=== PATIENT | female | born 1985 | race African-American/Black ===

== ENCOUNTER 2021-11-06 13:13 | Emergency (ER) | payer BC ==
[~2021-11-06] VITALS: Ht 165.1 cm; Wt 60.0 kg
[2021-11-06 13:33] VITALS: BP 116/59
[2021-11-06] MEDS ORDERED: QUET100T PO (13:36)
[2021-11-06] MEDS ORDERED: CLON-457 PO (13:36)
[2021-11-06] MEDS ORDERED: GABA-529 PO (13:36)
[2021-11-06 14:24] LABS: CLARITY URINE CLEAR (CLEAR); COLOR URINE YELLOW (YELLOW); KETONES URINE NEGATIVE (NEGATIVE); LEUKOCYTE ESTERASE URINE NEGATIVE (NEGATIVE); NITRITE URINE NEGATIVE (NEGATIVE); OCCULT BLOOD URINE NEGATIVE (NEGATIVE); PROTEIN URINE NEGATIVE (NEGATIVE); SPECIFIC GRAVITY URINE 1.003 (1.005-1.030); UROBILINOGEN URINE 0.2 E.U./dL (0.2-1.0)
[2021-11-06] MEDS ORDERED: QUET100T MT (14:30)
[2021-11-06] MEDS ORDERED: GABA-529 MT (14:30)
[2021-11-06] MEDS ORDERED: CLON0.1T MT (14:30)
[2021-11-06] MEDS ORDERED: METR500T MT (23:00)
[2021-11-06] MEDS ORDERED: DOXY100C5 MT (23:00)
[2021-11-06] MEDS ORDERED: DIF15 MT (23:00)
[2021-11-09 09:10] LABS: NEISSERIA GONORRHOEAE NAA Negative (Negative)
== END 2021-11-06 15:11 | disposition home or self-care (01) ==
LOC: ER 13:13
DX: Z76.0 Encounter for issue of repeat prescription (principal); F41.9 Anxiety disorder, unspecified; R30.0 Dysuria; I10 Essential (primary) hypertension; G40.909 Epilepsy, unspecified, not intractable, without status epilepticus; G47.00 Insomnia, unspecified
CPT/HCPCS: 81003; 81025; 87491; 87591; 99283

== ENCOUNTER 2021-11-06 17:47 | Emergency (ER) | payer BC ==
[~2021-11-06] VITALS: Ht 172.7 cm; Wt 59.0 kg
[~2021-11-06 17:47] MED LIST: CLON-457 PO; CLON0.1T MT; GABA-529 MT; GABA-529 PO; QUET100T MT; QUET100T PO
[2021-11-06] MEDS ORDERED: LIDOCAINE HCL 1% 20ML VIAL (Pyxis) INJ INFIL ONE (19:15)
[2021-11-06] MEDS ORDERED: ACETAMINOPHEN 325MG TABLET PO ONE (19:15)
[2021-11-06] MEDS ORDERED: CEFTRIAXONE SODIUM 500 MG/VIAL IM ONE (19:15)
[2021-11-06] MEDS ORDERED: DOXY100C5 MT (23:00)
[2021-11-06] MEDS ORDERED: DIF15 MT (23:00)
[2021-11-06] MEDS ORDERED: METR500T MT (23:00)
[2021-11-06 23:15] VITALS: BP 120/68
== END 2021-11-06 23:25 | disposition home or self-care (01) ==
LOC: ER 17:47
DX: N76.0 Acute vaginitis (principal); I10 Essential (primary) hypertension; G40.909 Epilepsy, unspecified, not intractable, without status epilepticus; F41.9 Anxiety disorder, unspecified
CPT/HCPCS: 81025; 87210; 96372; 99283; J0696; J3490

== ENCOUNTER 2021-12-23 07:06 | Emergency (ER) | payer SELFPAY ==
[~2021-12-23] VITALS: Ht 172.7 cm; Wt 55.0 kg
[~2021-12-23 07:06] MED LIST changes: +DIF15 MT; +DOXY100C5 MT; +METR500T MT
[2021-12-23 07:15] VITALS: BP 102/48
[2021-12-23] MEDS ORDERED: TOPUD PO (07:34)
[2021-12-23] MEDS ORDERED: ACETAMINOPHEN 325MG TABLET PO ONE (07:45)
== END 2021-12-23 08:00 | disposition home or self-care (01) ==
LOC: ER 07:06
DX: S00.01XA Abrasion of scalp, initial encounter (principal); G40.909 Epilepsy, unspecified, not intractable, without status epilepticus; F41.9 Anxiety disorder, unspecified; I10 Essential (primary) hypertension; F43.10 Post-traumatic stress disorder, unspecified; Z88.8 Allergy status to other drugs, medicaments and biological substances; Y08.89XA Assault by other specified means, initial encounter; Y93.89 Activity, other specified; Y92.89 Other specified places as the place of occurrence of the external cause
CPT/HCPCS: 99282